=== PATIENT | male | born 1980 | race African-American/Black ===

== ENCOUNTER 2017-08-21 12:28 | Emergency (ER) | payer SELFPAY | END 2017-08-21 14:08 | disposition home or self-care (01) | LOC: ERS 12:28 | DX: S46.912A Strain of unspecified muscle, fascia and tendon at shoulder and upper arm level, left arm, initial encounter (principal); F41.9 Anxiety disorder, unspecified; V49.9XXA Car occupant (driver) (passenger) injured in unspecified traffic accident, initial encounter | CPT/HCPCS: 99283 ==

== ENCOUNTER 2017-09-13 09:54 | Emergency (ER) | payer OTHER, SELFPAY ==
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
== END 2017-09-13 14:19 | disposition home or self-care (01) ==
LOC: ERS 09:54
DX: S20.211A Contusion of right front wall of thorax, initial encounter (principal); F31.9 Bipolar disorder, unspecified; V89.2XXA Person injured in unspecified motor-vehicle accident, traffic, initial encounter

== ENCOUNTER 2020-06-08 11:46 | Emergency (ER) | payer SELFPAY ==
[2020-06-08] MEDS ORDERED: Acetaminophen 500 MG TAB ONE (13:15)
[2020-06-08] MEDS ORDERED: Ibuprofen 800 MG TAB ONE (13:15)
== END 2020-06-08 13:20 | disposition home or self-care (01) ==
LOC: ERS 11:46
DX: R51.9 Headache, unspecified (principal); I10 Essential (primary) hypertension
CPT/HCPCS: 99283

== ENCOUNTER 2020-09-15 17:51 | Emergency (ER) | payer SELFPAY | END 2020-09-15 18:30 | LOC: ERS 17:51 | DX: Z02.89 Encounter for other administrative examinations (principal); I10 Essential (primary) hypertension; J45.909 Unspecified asthma, uncomplicated | CPT/HCPCS: 93005; 94760 ==